=== PATIENT | male | born 1990 | race Hispanic/Latino ===

== ENCOUNTER 2023-09-10 10:03 | Emergency (ER) | payer BC ==
[~2023-09-10] VITALS: Ht 162.6 cm; Wt 56.7 kg
[2023-09-10] MEDS: DIPH,PERTUSS(ACELL),TET VAC/PF 0.5 ML VIAL IM ONE (10:37)
[2023-09-10] MEDS ORDERED: LIDOCAINE HCL 1% 20 ML VIAL ONE (10:56)
[2023-09-10] MEDS ORDERED: LIDOCAINE HCL MPF 1% 5ML VIAL IJ ONE (11:00)
[2023-09-10] MEDS ORDERED: AMOX1TAB16 PO (11:38)
[2023-09-10] MEDS ORDERED: MUPI22OI2 TP (11:38)
[2023-09-10 12:02] VITALS: BP 129/78; PULSE 78; RESP 16; O2SAT 100
== END 2023-09-10 12:07 | disposition home or self-care (01) ==
LOC: EDH 10:03
DX: S91.332A Puncture wound without foreign body, left foot, initial encounter (principal); X58.XXXA Exposure to other specified factors, initial encounter; Y93.89 Activity, other specified; Y92.89 Other specified places as the place of occurrence of the external cause; Y99.8 Other external cause status
CPT/HCPCS: 99284; 90715; 73630; 90471; J3490